=== PATIENT | female | born 1995 | race Caucasian/White ===

== ENCOUNTER 2017-03-22 14:07 | Emergency (ER) | payer OTHER ==
--- NOTE | ~2017-03-22 | CR126 ---
[facility] A Service of [facility] & [facility] / [facility] RADIOLOGY TEXT RESULTS PATIENT: MISHEL GONZALEZ LOCATION: SED : [birth year] UNIT #: [id number] AGE: [address]: Reba Saldana SEX: F ORDER DR: [id number] [address] [address] [id number] E MR#: [id number] Acc #: [id number] NAME: MISHEL GONZALEZ. : 1995 SEX: F STUDY DATE/TIME: 03/22/2017 1345 UNIT: SED ROOM: STUDY DESCRIPTION: CR Foot Complete Min 3 View Lt Attending Physician: Reba Saldana Pa-C Ordering Physician: Reba Saldana Pa-C [facility] REPORT This report is preliminary unless electronic signature is present. EXAM Left foot 3 views 03/22/2017 1345 hours HISTORY Twisting injury 2 days ago with foot and ankle pain. COMPARISON Left foot 12/11/2012 FINDINGS AP, lateral and oblique views demonstrate normal bone density. There is no fracture or dislocation. IMPRESSION Negative left foot. Dictated by... Chrystal Martínez M.D. THIS IS AN ELECTRONICALLY VERIFIED REPORT Chrystal Martínez M.D. at 03/22/2017 5:58 PM Toshia TD: 03/22/2017 16:37 JOB #: [id number] MEDICAL IMAGING REPORT Page 1 of 1
--- NOTE | ~2017-03-22 | CR20 ---
[facility]. [facility] A Service of [facility] & [facility] RADIOLOGY TEXT RESULTS PATIENT: MISHEL GONZALEZ LOCATION: SED : [birth year] UNIT #: [id number] AGE: [address]: Reba Saldana SEX: F ORDER DR: [id number] [address] [address] [id number] E MR#: [id number] Acc #: [id number] NAME: MISHEL GONZALEZ. : 1995 SEX: F STUDY DATE/TIME: 03/22/2017 13:45 UNIT: SED ROOM: STUDY DESCRIPTION: CR Ankle Min 3 Views Lt Attending Physician: Reba Saldana Pa-C Ordering Physician: Reba Saldana Pa-C [facility] REPORT This report is preliminary unless electronic signature is present. EXAM Left ankle, 3 views, 03/22/2017, 1325 hours. CLINICAL HISTORY 21-year-old with twisting injury 2 days ago, ankle pain. COMPARISON 12/11/2012 FINDINGS AP, lateral, and oblique views demonstrate no fracture, dislocation, or degenerative change. IMPRESSION Negative left ankle. Dictated by... Chrystal Martínez M.D. THIS IS AN ELECTRONICALLY VERIFIED REPORT Chrystal Martínez M.D. at 03/22/2017 5:58 PM LUIS ANTONIO/tessie TD: 03/22/2017 16:34 JOB #: [id number] MEDICAL IMAGING REPORT Page 1 of 1
[~2017-03-22 14:07] MED LIST: ALBUTEROL17 GM INH; ALDACTONE PO; ANTIBIOTIC PO; FLEXERIL10 MG PO; IBUPROFEN PO; IBUPROFEN800 MG PO; MOTRIN600 M1 PO; MOTRIN600 MG PO; MUSCLE RELAXANT PO; NAPROSYN500 MG PO; NO MEDICATIONS; NORCO1 TAB 10/3 PO; PEPCID AC20 M2 PO; PHENERGAN PO; PRENATAL1 TA1 PO; VOLTAREN75 MG; ZOFRAN PO; ZYRTEC
== END 2017-03-22 14:50 | disposition home or self-care (01) ==
LOC: SED 14:07
DX: M25.572 Pain in left ankle and joints of left foot (principal)
CPT/HCPCS: 29540; 73610; 73630; 99283

== ENCOUNTER 2017-04-30 21:38 | Emergency (ER) | payer OTHER | END 2017-04-30 23:41 | disposition left against medical advice (07) | LOC: SED 21:38 | DX: L60.0 Ingrowing nail (principal); Z23 Encounter for immunization | CPT/HCPCS: 64450; 90471; 90715; 99283 ==